=== PATIENT | female | born 1950 | race Caucasian/White ===

== ENCOUNTER → 2017-10-22 | Outpatient (CLI) | payer MEDICARE ==
[2017-10-22 10:12] LABS: BASO % 0.2 % (0.0-1.0); EOS # 0.2 10^3/uL (0.0-0.50); EOS % 3.5 % (0.0-3.0); HEMATOCRIT 40.5 % (36.0-47.0); HEMOGLOBIN 13.7 g/dl (12.0-16.0); IMMATURE GRANULOCYTE % 0.2 % (0-0); LYMPH # 0.8 10^3/uL (1.5-4.5); LYMPH % 17.4 % (24.0-44.0); MEAN CORPUSCULAR HEMOGLOBIN 29.2 pg (27.0-33.0); MEAN CORPUSCULAR HGB CONC 33.8 g/dl (32.0-36.5); MEAN CORPUSCULAR VOLUME 86.4 fl (80.0-96.0); MONO # 0.4 10^3/uL (0.0-0.8); MONO % 8.6 % (0.0-5.0); NEUTROPHILS # 3.2 10^3/uL (1.8-7.7); NEUTROPHILS % 70.1 % (36.0-66.0); PLATELET COUNT, AUTOMATED 214 10^3/uL (150-450); RED BLOOD COUNT 4.69 10^6/uL (4.00-5.40); RED CELL DISTRIBUTION WIDTH 12.4 % (11.5-14.5); WHITE BLOOD COUNT 4.5 10^3/uL (4.0-10.0)
[2017-10-22 10:52] LABS: ALBUMIN 3.6 GM/DL (3.2-5.2); ALKALINE PHOSPHATASE 71 U/L (45-117); ALT/SGPT 23 U/L (12-78); ANION GAP 6 MEQ/L (8-16); AST/SGOT 27 U/L (7-37); BILIRUBIN,TOTAL 0.6 MG/DL (0.2-1.0); BLOOD UREA NITROGEN 15 MG/DL (7-18); CALCIUM LEVEL 9.1 MG/DL (8.8-10.2); CARBON DIOXIDE LEVEL 33 MEQ/L (21-32); CHLORIDE LEVEL 104 MEQ/L (98-107); CHOLESTEROL LEVEL 179 MG/DL (<200); CHOLESTEROL RISK RATIO 1.455 (<5); CREATININE FOR GFR 0.77 MG/DL (0.55-1.02); FREE T4 1.21 NG/DL (0.76-1.46); GLOMERULAR FILTRATION RATE > 60.0 (>45); GLUCOSE, FASTING 84 MG/DL (80-110); HDL CHOLESTEROL 123 MG/DL (>40); LDL CHOLESTEROL 50.8 MG/DL (<100); NON-HDL-C 56 MG/DL; POTASSIUM SERUM 4.4 MEQ/L (3.5-5.1); SODIUM LEVEL 143 MEQ/L (136-145); TOTAL PROTEIN 6.6 GM/DL (6.4-8.2); TRIGLYCERIDES LEVEL 26 MG/DL (<150)
== END ==
LOC: M LAB 09:01
DX: Z00.00 Encounter for general adult medical examination without abnormal findings (principal); E78.00 Pure hypercholesterolemia, unspecified
CPT/HCPCS: 84443

== ENCOUNTER → 2017-10-23 | Outpatient (REF) | payer MEDICARE | LOC: M LAB REF 10:47 | DX: Z00.00 Encounter for general adult medical examination without abnormal findings (principal); Z12.11 Encounter for screening for malignant neoplasm of colon | CPT/HCPCS: 82270 ==

== ENCOUNTER → 2019-06-22 | Outpatient (REF) | payer MEDICARE ==
[2019-06-23 16:48] LABS: CHOLESTEROL RISK RATIO 1.635 (<5)
== END ==
LOC: M LABNEURO 16:29
PROVIDERS: ATTEND Nurse Practitioner Family
DX: Z00.01 Encounter for general adult medical examination with abnormal findings (principal)

== ENCOUNTER → 2019-06-22 | Outpatient (REF) | payer MEDICARE ==
[2019-06-22 14:52] LABS: BASO % 0.3 % (0.0-1.0); EOS # 0.1 10^3/uL (0.0-0.5); EOS % 2.1 % (0.0-3.0); HEMATOCRIT 42.7 % (36.0-47.0); HEMOGLOBIN 14.2 g/dl (12.0-15.5); LYMPH # 0.9 10^3/uL (1.5-5.0); LYMPH % 13.9 % (24.0-44.0); MEAN CORPUSCULAR HEMOGLOBIN 30.1 pg (27.0-33.0); MEAN CORPUSCULAR HGB CONC 33.3 g/dl (32.0-36.5); MEAN CORPUSCULAR VOLUME 90.5 fl (80.0-96.0); MONO # 0.4 10^3/uL (0.0-0.8); MONO % 7.1 % (0.0-5.0); NEUTROPHILS # 4.7 10^3/uL (1.5-8.5); NEUTROPHILS % 76.4 % (36.0-66.0); PLATELET COUNT, AUTOMATED 207 10^3/uL (150-450); RED BLOOD COUNT 4.72 10^6/uL (4.00-5.40); WHITE BLOOD COUNT 6.2 10^3/uL (4.0-10.0)
[2019-06-22 14:54] LABS: ALBUMIN 3.8 GM/DL (3.2-5.2); ALT/SGPT 27 U/L (12-78); BILIRUBIN,TOTAL 0.9 MG/DL (0.2-1.0); BLOOD UREA NITROGEN 19 MG/DL (7-18); CALCIUM LEVEL 9.6 MG/DL (8.8-10.2); CARBON DIOXIDE LEVEL 29 MEQ/L (21-32); CHLORIDE LEVEL 104 MEQ/L (98-107); CREATININE FOR GFR 0.92 MG/DL (0.55-1.30); FOLATE 17.2 NG/ML; GLOMERULAR FILTRATION RATE > 60.0 (>39); GLUCOSE, FASTING 75 MG/DL (70-100); POTASSIUM SERUM 4.3 MEQ/L (3.5-5.1); RHEUMATOID FACTOR QUANT 12.8 IU/ML (<15.0); SODIUM LEVEL 141 MEQ/L (136-145); TOTAL 25(OH) VITAMIN D 20.2 NG/ML (30.0-100.0); TOTAL PROTEIN 6.8 GM/DL (6.4-8.2); VITAMIN B12 LEVEL 253 PG/ML
[2019-06-22 15:08] LABS: HEMOGLOBIN A1c 5.1 %
[2019-06-22 15:16] LABS: ERYTHROCYTE SEDIMENTATION RATE 19 mm/hr (0-30)
[2019-06-26 00:06] LABS: ANCA-ATYPICAL <1:20 titer (Neg:<1:20); ANTI DS-DNA AB <1:10 titer (.); ANTINUCLEAR ANTIBODIES DIRECT Negative (Negative); CYTOPLASMIC NEUTROP AB ANCA-C <1:20 titer (Neg:<1:20); Lyme Disease IgG/IgM Antibodie <0.91 ISR (0.00-0.90); Lyme Disease IgM Ab Quantitati <0.80 index (0.00-0.79); PERINUCLEAR AB ANCA-P <1:20 titer (Neg:<1:20); SJOGREN'S ANTI SS-A <0.2 AI (0.0-0.9); SJOGREN'S ANTI SS-B <0.2 AI (0.0-0.9); VITAMIN B1 LEVEL WHOLE BLOOD 125.4 nmol/L (66.5-200.0); VITAMIN B6,PYRIDOXAL PHOSPHATE 5.8 ug/L (2.0-32.8); VITAMIN E(ALPHA TOCOPHEROL) 9.9 mg/L (9.0-29.0); VITAMIN E(GAMMA TOCOPHEROL) 0.9 mg/L (0.5-4.9)
[2019-06-29 11:02] LABS: DRVV SCREEN 39.3 SEC
== END ==
LOC: M LABNEURO 16:28
PROVIDERS: ATTEND Psychiatry & Neurology Neurology
DX: G31.9 Degenerative disease of nervous system, unspecified (principal)

== ENCOUNTER 2020-07-20 19:50 | Observation (INO) | payer MEDICARE ==
[~2020-07-20] VITALS: Ht 149.9 cm; Wt 37.8 kg
[2020-07-20] MEDS ORDERED: ASPI-161 PO ×2 (20:11→22:34)
[2020-07-20] MEDS ORDERED: MEMA10TA19 PO ×2 (20:11→22:34)
[2020-07-20] MEDS ORDERED: LISI2.5T2 PO ×2 (20:11→22:34)
[2020-07-20] MEDS ORDERED: DONE10TA90 PO ×2 (20:11→22:34)
[2020-07-20] MEDS ORDERED: hydrALAZINE 20MG/ML 1ML VIAL (J0360 PER 20MG) IV STA (20:53)
[2020-07-20] MEDS ORDERED: PRAVASTATIN 20 MG TAB PO SCH (21:00)
[2020-07-20 21:21] LABS: BASO % 0.3 % (0.0-1.0); EOS % 0.5 % (0.0-3.0); HEMATOCRIT 41.6 % (36.0-47.0); HEMOGLOBIN 13.7 g/dl (12.0-15.5); LYMPH # 1.2 10^3/uL (1.5-5.0); LYMPH % 16.2 % (24.0-44.0); MEAN CORPUSCULAR HGB CONC 32.9 g/dl (32.0-36.5); MEAN CORPUSCULAR VOLUME 87.9 fl (80.0-96.0); MONO # 0.5 10^3/uL (0.0-0.8); NEUTROPHILS # 5.7 10^3/uL (1.5-8.5); NEUTROPHILS % 75.7 % (36.0-66.0); PLATELET COUNT, AUTOMATED 226 10^3/uL (150-450); RED BLOOD COUNT 4.73 10^6/uL (4.00-5.40); WHITE BLOOD COUNT 7.6 10^3/uL (4.0-10.0)
[2020-07-20 21:32] LABS: INR 0.94; PROTHROMBIN TIME 12.8 SECONDS (12.5-14.3)
[2020-07-20 21:41] LABS: BLOOD UREA NITROGEN 23 MG/DL (7-18); CALCIUM LEVEL 9.6 MG/DL (8.8-10.2); CARBON DIOXIDE LEVEL 32 MEQ/L (21-32); CHLORIDE LEVEL 104 MEQ/L (98-107); CK-MB VALUE MASS 2.3 NG/ML (<3.6); CPK CREATINE PHOSPHOKINASE 186 U/L (26-192); CREATININE FOR GFR 0.93 MG/DL (0.55-1.30); GLOMERULAR FILTRATION RATE > 60.0 (>39); GLUCOSE, FASTING 90 MG/DL (70-100); MB/CK RELATIVE INDEX 1.24 (< OR =4); POTASSIUM SERUM 3.8 MEQ/L (3.5-5.1); SODIUM LEVEL 140 MEQ/L (136-145); TROPONIN I < 0.02 NG/ML (< 0.10)
--- NOTE | 2020-07-20 21:56 | REPVR ---
PROCEDURE INFORMATION: Exam: CT Head Without Contrast Exam date and time: 07/20/2020 9:13 PM Age: 69 years old Clinical indication: Dizziness; Additional info: CVA - nursing interventions must not delay CT TECHNIQUE: Imaging protocol: Computed tomography of the head without contrast. Radiation optimization: All CT scans at this facility use at least one of these dose optimization techniques: automated exposure control; mA and/or kV adjustment per patient size (includes targeted exams where dose is matched to clinical indication); or iterative reconstruction. COMPARISON: No relevant prior studies available. FINDINGS: Brain: There is mild cerebral atrophy. Changes of chronic white matter microvascular disease are present. No signs of a recent infarction or hemorrhage. Cerebral ventricles: No ventriculomegaly. Bones/joints: Unremarkable. No acute fracture. Paranasal sinuses: Visualized sinuses are unremarkable. No fluid levels. Mastoid air cells: Visualized mastoid air cells are well aerated. Soft tissues: Unremarkable. IMPRESSION: Atrophy and chronic white matter changes. No acute intracranial abnormality. Electronically signed by: Chao Stern On 07/20/2020 21:55:47 PM
--- NOTE | 2020-07-20 21:57 | REPVR ---
PROCEDURE INFORMATION: Exam: XR Chest, 1 View Exam date and time: 07/20/2020 9:32 PM Age: 69 years old Clinical indication: Chest pain; Additional info: CVA TECHNIQUE: Imaging protocol: XR of the chest Views: 1 view. COMPARISON: No relevant prior studies available. FINDINGS: Lungs: Lungs are mildly hyperinflated but otherwise clear. Pleural space: Unremarkable. No pleural effusion. No pneumothorax. Heart/Mediastinum: Unremarkable. No cardiomegaly. Bones/joints: Unremarkable. IMPRESSION: No acute findings. Electronically signed by: Chao Stern On 07/20/2020 21:56:51 PM
[2020-07-20] MEDS ORDERED: ASPIRIN 325 MG TAB PO ONE (22:15)
[2020-07-20] MEDS ORDERED: ACETAMINOPHEN TAB 650MG DOSE (2X325MG) PO PRN (23:15)
[2020-07-20] MEDS ORDERED: MOM 30ML SUSPENSION UDC PO PRN (23:15)
[2020-07-20] MEDS ORDERED: ENALAPRIL MALEATE 5 MG TAB PO ONE (23:30)
--- NOTE | 2020-07-20 23:49 | REPVR ---
PROCEDURE INFORMATION: Exam: MR Head Without Contrast Exam date and time: 07/20/2020 10:57 PM Age: 69 years old Clinical indication: Dizziness; Additional info: Dizzy resolved ? TIA TECHNIQUE: Imaging protocol: MR of the head without contrast. COMPARISON: CT Head without contrast 07/20/2020 9:06 PM FINDINGS: Brain: There is mild cerebral atrophy. Changes of chronic white matter microvascular disease are present. No signs of a recent infarction or hemorrhage. Cerebral ventricles: Normal. No ventriculomegaly. Bones/joints: Unremarkable. Paranasal sinuses: Normal as visualized. No acute sinusitis. Mastoid air cells: Normal as visualized. No mastoid effusion. Orbits: Unremarkable. Soft tissues: Unremarkable. IMPRESSION: Atrophy and chronic white matter changes. No acute intracranial abnormality. Electronically signed by: Chao Stern On 07/20/2020 23:48:50 PM
--- NOTE | 2020-07-20 23:52 | REPVR ---
PROCEDURE INFORMATION: Exam: MR Angiogram Head Without Contrast, Arteries Exam date and time: 07/20/2020 10:57 PM Age: 69 years old Clinical indication: Vertigo; Additional info: Dizzy resolved ? TIA TECHNIQUE: Imaging protocol: MR angiogram head without contrast. Exam focused on the arteries. COMPARISON: CT Head without contrast 07/20/2020 9:06 PM FINDINGS: ANTERIOR CIRCULATION: Right internal carotid artery: Intracranial segment is patent with no significant stenosis. No aneurysm. Right middle cerebral artery: No occlusion or significant stenosis. No aneurysm. Right anterior cerebral artery: No occlusion or significant stenosis. No aneurysm. Left internal carotid artery: Intracranial segment is patent with no significant stenosis. No aneurysm. Left middle cerebral artery: No occlusion or significant stenosis. No aneurysm. Left anterior cerebral artery: No occlusion or significant stenosis. No aneurysm. POSTERIOR CIRCULATION: Right vertebral artery: No occlusion or significant stenosis. No aneurysm. Left vertebral artery: No occlusion or significant stenosis. No aneurysm. Basilar artery: No occlusion or significant stenosis. No aneurysm. Right posterior cerebral artery: No occlusion or significant stenosis. No aneurysm. Left posterior cerebral artery: No occlusion or significant stenosis. No aneurysm. IMPRESSION: No stenosis or occlusion. Electronically signed by: Chao Stern On 07/20/2020 23:51:41 PM
[2020-07-21 00:30] VITALS: BP 156/68
--- NOTE | 2020-07-21 01:25 | HPEPDOC ---
[facility] Medical History & Physical Date of Admission Jul 21, 2020 Date of Service: Jul 21, 2020 History and Physical CHIEF COMPLAINT: dizziness HISTORY OF PRESENT ILLNESS: 69-year-old female brought into the hospital by her daughter Tapan after she was found to be complaining of dizziness at home. Patient says she's been feeling dizzy since this afternoon. She denies any other symptoms denies any chest pain or palpitations or shortness of breath. Patient was brought into the ED where she was found to be in hypertensive urgency and was given 10 mg of IV hydralazine which improved her blood pressure significantly. Patient says she no longer feels dizzy when she was seen at bedside. There is concern for possible TIA as the underlying cause of her dizziness by the emergency department physician and so stroke workup was initiated. Neurology was consulted from the ED who agreed to admit the patient for stroke protocol workup. CT head was negative for intracranial bleeding or large stroke at this time MRI brain was o rdered from the ED is pending. PAST MEDICAL HISTORY: HTN PAST SURGICAL HISTORY: denies any SOCIAL HISTORY: denies using tobacco, etoh or illicit drugs ALLERGIES: Please see below. REVIEW OF SYSTEMS: Constitutional: No sweating or weight loss Eyes: No eye pain or acute blurred vision HENT: No complaints of headache or sore throat Cadiovascular: No Chest pain or palpitations Pulm: No SOB or cough Gastrointestinal: No N/V, no abdominal pain. Genitourinary: No dysuria or hematuria Musculoskeletal: No back pain or joint pain Skin: No rash or jaundice Neurological: dizziness has resolved HOME MEDICATIONS: Please see below. PHYSICAL EXAMINATION: Constitutional: Awake and alert, in no apparent distress. BP was 154/82 at bedside. ENT: Sclera are clear. Mucosa is moist. Respiratory: Lungs CTA bilaterally. No respiratory distress. No use of accessory muscles. Cardiovascular: RRR S1 and S2 are normal, no murmur Gastrointestinal: Abdomen is soft, non distended, non tender, BS present. Musculoskeletal: No edema. No joint deformities. RUE 5/5, LUE 5/5, BLE 5/5 Skin: Warm, dry mental status: The patient is awake, alert, oriented to name, location, and date. Cranial nerves: Pupils are equal, round, and reactive to light. Extraocular muscles intact. Visual lang full bilaterally. Smile is symmetrical. Tongue is midline. Intact sensation on both sides of face. Motor: At least 4+/5 in both upper and lower extremities without any drifting. Sensory: Intact to sensation bilaterally. Reflexes: Symmetrical, non-hyperreflexic. Not pathological. Coordination: Nnytod-br-ccui grossly intact. LABORATORY DATA: See below. MICROBIOLOGY: Please see below. ASSESSMENT/PLAN 69F with PMHx HTN here for presenting with dizziness likely secondary to HTN urgency. ED physician suspected possible TIA for patients dizziness and consulted with neurology who suggested to admit the patient for possible TIA workup. # HTN urgency: BP better in ED after 1x IV hydralazine given. - Started on Enalapril. Monitor and titrate BP. - Orthostats negative. # possible TIA: neurology Dr Benitez consulted from the ED suggested stroke protocol workup. - Stroke protocol initiated - CT head shows no acute intracranial abnormality - ASA 81 mg - High dose statin - MRI brain ordered from ED pending - Carotid ultrasound pending - Passed bedside swallow eval and can have no salt diet - Neurology consulted - PT/OT pending - Fall & seizure precautions # DVT prophylaxis: nevanox [facility] Hospitalist Vital Signs Vital Signs Date Time Temp Pulse Resp B/P (MAP) Pulse Ox O2 Delivery O2 Flow Rate FiO2 07/21/20 00:35 156/68 07/21/20 00:05 68 99 07/20/20 23:55 98.0 Room Air 07/20/20 22:58 16 Laboratory Data Labs 24H Laboratory Tests 2 07/20/20 21:07: Immature Granulocyte % (Auto) 0.3, Neutrophils (%) (Auto) 75.7H, Lymphocytes (%) (Auto) 16.2L, Monocytes (%) (Auto) 7.0H, Eosinophils (%) (Auto) 0.5, Basophils (%) (Auto) 0.3, Neutrophils # (Auto) 5.7, Lymphocytes # (Auto) 1.2L, Monocytes # (Auto) 0.5, Eosinophils # (Auto) 0.0, Basophils # (Auto) 0.0, Nucleated Red Blood Cells % (auto) 0.0, Prothrombin Time 12.8, Prothromb Time International Ratio 0.94, Activated Partial Thromboplast Time 27.0, Anion Gap 4L, Glomerular Filtration Rate > 60.0, Calcium Level 9.6, Total Creatine Kinase 186, Creatine Kinase MB 2.3, Creatine Kinase MB Relative Index 1.24, Troponin I < 0.02 CBC/BMP Laboratory Tests 07/20/20 21:07 Home Medications Scheduled Aspirin (Aspirin EC) 81 Mg Tablet.dr, 81 MG PO DAILY Donepezil HCl (Donepezil HCl) 10 Mg Tablet, 10 MG PO QHS Lisinopril (Lisinopril) 2.5 Mg Tablet, 2.5 MG PO QHS Memantine HCl (Memantine HCl) 10 Mg Tablet, 10 MG PO BID Allergies Coded Allergies: No Known Allergies (Unverified , 04/03/09) A-FIB/CHADSVASC A-FIB History Current/History of A-Fib/PAF?: No ANNEMARIE NEUMANN MD Jul 21, 2020 01:25
[2020-07-21 04:00] VITALS: BP 130/60
[2020-07-21 05:23] LABS: HEMATOCRIT 39.6 % (36.0-47.0); HEMOGLOBIN 13.3 g/dl (12.0-15.5); MEAN CORPUSCULAR HEMOGLOBIN 29.6 pg (27.0-33.0); MEAN CORPUSCULAR HGB CONC 33.6 g/dl (32.0-36.5); MEAN CORPUSCULAR VOLUME 88.2 fl (80.0-96.0); PLATELET COUNT, AUTOMATED 207 10^3/uL (150-450); RED BLOOD COUNT 4.49 10^6/uL (4.00-5.40); WHITE BLOOD COUNT 8.2 10^3/uL (4.0-10.0)
[2020-07-21 05:56] LABS: ALBUMIN 3.2 GM/DL (3.2-5.2); ALT/SGPT 17 U/L (12-78); BILIRUBIN,TOTAL 0.6 MG/DL (0.2-1.0); BLOOD UREA NITROGEN 22 MG/DL (7-18); CALCIUM LEVEL 8.9 MG/DL (8.8-10.2); CARBON DIOXIDE LEVEL 29 MEQ/L (21-32); CHLORIDE LEVEL 105 MEQ/L (98-107); CREATININE FOR GFR 0.84 MG/DL (0.55-1.30); GLOMERULAR FILTRATION RATE > 60.0 (>39); GLUCOSE, FASTING 90 MG/DL (70-100); POTASSIUM SERUM 3.9 MEQ/L (3.5-5.1); SODIUM LEVEL 141 MEQ/L (136-145); TOTAL PROTEIN 5.9 GM/DL (6.4-8.2)
--- NOTE | 2020-07-21 06:50 | REPVR ---
PROCEDURE INFORMATION: Exam: US Duplex Bilateral Extracranial Arteries Exam date and time: 07/20/2020 6:24 AM Age: 69 years old Clinical indication: Dizziness; Additional info: Stroke workup TECHNIQUE: Imaging protocol: Real-time Duplex ultrasound scan of the bilateral carotid and vertebral arteries combining quach scale, color Doppler and spectral waveform analysis. Bilateral exam. COMPARISON: CT Head without contrast 07/20/2020 9:06 PM FINDINGS: Right common carotid artery: The proximal right CCA is patent with normal waveform and peak systolic velocity of 129.9 centimeter/second. The mid right CCA is patent with normal waveform and peak systolic velocities of 117.1 centimeter/second. The distal right CCA is patent with normal waveforms and peak systolic velocity of 82.3 centimeter/second. Right internal carotid artery: Mild echogenic plaque seen in the right carotid bulb with peak systolic velocity of 76.1 centimeter/second. The proximal right ICA is patent with normal waveforms and peak systolic velocity of 65.3 centimeter/second. The mid right ICA is patent with normal waveforms and peak systolic velocity of 75.1 centimeter/second. The distal right ICA is patent with normal waveforms and peak systolic velocity of 81.2 centimeter/second. Right ICA/CCA ratio: The right ICA to CCA ratio is within normal limits at 0.63 Right external carotid artery: The proximal right ECA is patent with normal waveforms and peak systolic velocity of 94.6 centimeter/second. Right vertebral artery: Unremarkable. Antegrade flow. Left common carotid artery: The proximal left CCA is patent with normal waveform and peak systolic velocity of 100.2 centimeter/second. The mid left CCA is patent with normal waveform and peak systolic velocities of 87.7 centimeter/second. The distal left CCA is patent with normal waveforms and peak systolic velocity of 72.9 centimeter/second. Left internal carotid artery: Minimal posterior plaque seen in the left carotid bulb with peak systolic velocity of 58 centimeter/second. The proximal left ICA is patent with normal waveforms and peak systolic velocity of 68.8 centimeter/second. The mid left ICA is patent with normal waveforms and peak systolic velocity of 75.9 centimeter/second. The distal left ICA is patent with normal waveforms and peak systolic velocity of 66.3 centimeter/second. Left ICA/CCA ratio: The left ICA to CCA ratio is within normal limits at 0.76. Left external carotid artery: The proximal left ECA is patent with normal waveforms and peak systolic velocity of 107.7 centimeter/second. Left vertebral artery: Unremarkable. Antegrade flow. IMPRESSION: 1. No sonographic evidence of hemodynamically significant stenosis in the right or left carotid arteries. 2. The vertebral arteries were not evaluated on this exam. REFERENCES: SRU CRITERIA. The degree of internal carotid artery stenosis is based on criteria defined by the Society of Radiologists in Ultrasound (SRU). Normal is no stenosis. Mild is less than 50% stenosis. Moderate is 50-69% stenosis. Severe is greater than 69% stenosis to near occlusion. Near occlusion is a markedly narrowed lumen. Total occlusion is no detectable patent lumen. Electronically signed by: Hema Castro On 07/21/2020 06:49:26 AM
[2020-07-21] MEDS ORDERED: PRAV40TA2 PO (07:18)
[2020-07-21] MEDS ORDERED: ENAL5TA PO (07:18)
--- NOTE | 2020-07-21 07:29 | ECGEPIP ---
[facility] - ED Test Date: 2020-07-20 Pat Name: ROSALVA VU Department: Room: - Gender: Female Tour Coordinator: RONI MORALESB: 1950 Requested By: CHARU Geiger Order Number: [id number] Reading MD: Ishmael Lucas Measurements Intervals Allons Rate: 64 P: 58 AR: 178 QRS: 54 QRSD: 85 T: 58 QT: 407 QTc: 421 Interpretive Statements SINUS RHYTHM NONSPECIFIC T-WAVE ABNORMALITY BASELINE ARTIFACT AFFECTS INTERPRETATION Electronically Signed on 07-21-2020 7:29:30 EDT by Ishmale Lucas
[2020-07-21 08:00] VITALS: BP 130/61
[2020-07-21 08:56] VITALS: BP 130/61
[2020-07-21] MEDS ORDERED: ENALAPRIL MALEATE 5 MG TAB PO SCH (09:00)
[2020-07-21] MEDS ORDERED: ASPIRIN 81 MG ENTERIC TAB PO SCH (09:00)
[2020-07-21] MEDS ORDERED: ENOXAPARIN 30MG/0.3ML SYRINGE (J1650 PER 10MG) SC SCH (09:00)
--- NOTE | 2020-07-21 11:33 | DS.PDOC ---
Discharge Summary General Date of Admission Jul 20, 2020 at 19:51 Date of Discharge 07/21/2020 Discharge Summary PROCEDURES PERFORMED DURING STAY: [ None]. ADMITTING DIAGNOSES / DISCHARGE DIAGNOSES: s/p HTN urgency s/p Dizziness - possible TIA, possibly 2/2 HTN Dementia DVT Prophylaxis COMPLICATIONS/CHIEF COMPLAINT: Hypertensive Urgency. HISTORY OF PRESENT ILLNESS: Patient is a 69-year-old female with a past medical history of hypertension, dementia who presented to the emergency room at points of dizziness at home. Upon arrival to emergency room, patient was found to have an elevated blood pressure emergency room providers had ordered head imaging to evaluate for stroke/TIA. Patient was admitted to the hospital service for hypertensive urgency. HOSPITAL COURSE: s/p HTN urgency - BP well controlled - c/w Enalapril on discharge; will DC Lisinopril - Patient's daughter was present at the bedside; I explained to her that moving forward we should continue with careful logs of blood pressures as an outpatient - She reports that they do have a BP cuff at home that they use once in a while only - Will have outpatient follow-up with primary care provider to ensure blood pressure stability/adjustments to blood pressure regimen s/p Dizziness - possible TIA, possibly 2/2 HTN - Currently patient denies any significant dizziness - BP is well controlled - Imaging noted below; MRI / MRA / Duplex Carotid negative - ECHO complete; will have outpatient follow up with PCP for results - c/w ASA and Pravastatin on discharge - Cleared PT for DC home Dementia - c/w donepezil and memantine DVT Prophylaxis - c/w Lovenox DISCHARGE MEDICATIONS: Please see below. ALLERGIES: Please see below. PHYSICAL EXAMINATION ON DISCHARGE: Vitals (See below) General: Lying in bed, appears comfortable, Awake / Alert HEENT: NC, AT CVS: +S1S2 Lungs: Fair air entry b/l, no appreciable wheezing, rhonchi or rales Abdomen: Soft, ND, NT Extremities: No evidence of edema, - Calf tenderness LABORATORY DATA: Please see below. IMAGING DATA: Duplex Carotid 07/20: 1. No sonographic evidence of hemodynamically significant stenosis in the right or left carotid arteries. 2. The vertebral arteries were not evaluated on this exam. CT Head 07/20: Atrophy and chronic white matter changes. No acute intracranial abnormality. CXR 07/20: No acute findings. MRI Brain 07/20: Atrophy and chronic white matter changes. No acute intracranial abnormality. MRA Brain 07/20: No stenosis or occlusion. ACTIVITY: [As tolerated]. DISCHARGE PLAN: Follow-up with primary care provider within the next 7 days Remain compliant with treatment plan and medications Return to the ER if you experience any problems DISPOSITION: Home DISCHARGE CONDITION: [Stable]. TIME SPENT ON DISCHARGE: 35 minutes. Vital Signs/I&Os Vital Signs Date Time Temp Pulse Resp B/P (MAP) Pulse Ox O2 Delivery O2 Flow Rate FiO2 07/21/20 08:56 130/61 07/21/20 08:00 97.8 64 18 100 Room Air I&O- Last 24 Hours up to 6 AM 07/21/20 06:00 Intake Total 0 ml Balance 0 ml Laboratory Data Labs 24H Laboratory Tests 2 07/20/20 21:07: Immature Granulocyte % (Auto) 0.3, Neutrophils (%) (Auto) 75.7H, Lymphocytes (%) (Auto) 16.2L, Monocytes (%) (Auto) 7.0H, Eosinophils (%) (Auto) 0.5, Basophils (%) (Auto) 0.3, Neutrophils # (Auto) 5.7, Lymphocytes # (Auto) 1.2L, Monocytes # (Auto) 0.5, Eosinophils # (Auto) 0.0, Basophils # (Auto) 0.0, Nucleated Red Blood Cells % (auto) 0.0, Prothrombin Time 12.8, Prothromb Time International Ratio 0.94, Activated Partial Thromboplast Time 27.0, Anion Gap 4L, Glomerular Filtration Rate > 60.0, Calcium Level 9.6, Total Creatine Kinase 186, Creatine Kinase MB 2.3, Creatine Kinase MB Relative Index 1.24, Troponin I < 0.02 07/21/20 05:06: Nucleated Red Blood Cells % (auto) 0.0, Anion Gap 7L, Glomerular Filtration Rate > 60.0, Calcium Level 8.9, Total Bilirubin 0.6, Aspartate Amino Transf (AST/SGOT) 22, Alanine Aminotransferase (ALT/SGPT) 17, Alkaline Phosphatase 57, Total Protein 5.9L, Albumin 3.2, Albumin/Globulin Ratio 1.2 CBC/BMP Laboratory Tests 07/20/20 21:07 07/21/20 05:06 Discharge Medications Scheduled Aspirin (Aspirin EC) 81 Mg Tablet.dr, 81 MG PO DAILY, (Reported) Donepezil HCl (Donepezil HCl) 10 Mg Tablet, 10 MG PO QHS, (Reported) Enalapril Maleate (Enalapril Maleate) 5 Mg Tablet, 5 MG PO DAILY Memantine HCl (Memantine HCl) 10 Mg Tablet, 10 MG PO BID, (Reported) Pravastatin Sodium (Pravastatin Sodium) 40 Mg Tablet, 1 TAB PO DAILY Allergies Coded Allergies: No Known Allergies (Unverified , 04/03/09) JESSICA WILKINS MD Jul 21, 2020 11:33
[2020-07-21 12:00] VITALS: BP 137/63
--- NOTE | 2020-07-24 07:00 | ECHO ---
DATE OF PROCEDURE: 07/21/2020 Age: 69 Gender: Female REFERRING PROVIDER: Dr. Bobby Saez. PATIENT LOCATION: Room 3223. REASON FOR STUDY: Transient ischemic attack (TIA). 2D MEASUREMENTS: IVS 1.0 cm LV 2.0 cm LVPW 1.2 cm LA 1.8 cm Aorta 2.5 cm IVC 0.7 cm DOPPLER MEASUREMENT Peak velocity across the aortic valve 1.3 m/s Peak velocity across the LVOT 1.1 m/s Mitral E 0.78 Mitral A 0.84 with a ratio of 0.9 Maximum tricuspid valve velocity 2.4 m/s 2D COMMENTS: 1. Normal left ventricular size, wall thickness, and normal global left ventricular systolic function. The estimated left ventricular systolic ejection fraction is 65% to 70%. 2. Normal left atrium. Normal right atrium and right ventricle. 3. The atrial septum appeared to be normal without evidence of defect or shunt. 4. Normal aortic root. 5. No pericardial effusion seen. 6. Mildly calcified aortic valve with normal leaflet excursion. Mildly calcified mitral annulus with normal anterior mitral valve leaflet motion. Normal tricuspid valve. The pulmonic valve and proximal pulmonary artery branches were not well visualized. 7. The inferior vena cava appeared to be small, central venous pressure mildly low. Doppler detects mild aortic regurgitation, trace mitral regurgitation, and mild tricuspid regurgitation. The calculated pulmonary artery systolic pressure varies between 30 to 40 mmHg. Abnormal relaxation pattern was noted across the mitral valve leaflets, as well as the mitral valve annulus consistent with features of grade 1 left ventricular diastolic dysfunction. IMPRESSION: 1. Normal global left ventricular systolic function. There are some features of grade 1 left ventricular diastolic dysfunction manifested by abnormal relaxation. 2. Aortic valve sclerosis with mild aortic regurgitation, but no aortic stenosis. 3. Mitral annulus calcification with trace mitral regurgitation. 4. Mild tricuspid regurgitation with mild pulmonary hypertension. MTDD
== END 2020-07-21 13:30 | disposition home or self-care (01) ==
LOC: M ED 19:50 → M ED INP 19:51 → ENRESERV 23:46 → M PCU 07-21 00:24
PROVIDERS: ADMIT Family Medicine; ATTEND Family Medicine
DX: I16.0 Hypertensive urgency (principal); R42 Dizziness and giddiness; I10 Essential (primary) hypertension; Z79.82 Long term (current) use of aspirin; Z79.899 Other long term (current) drug therapy; G45.9 Transient cerebral ischemic attack, unspecified
CPT/HCPCS: 36415; 70450; 70544; 70551; 71045; 80048; 80053; 82550; 82553; 84484; 85025; 85027; 85610; 85730; 93005; 93041; 93306; 93880; 94760; 96372; 96374; 97161; 99285; G0378; J0360; J1650